=== PATIENT | male | born 1970 | race Two or more races ===

== ENCOUNTER 2023-05-04 21:21 | Emergency (ER) | payer MEDICAID ==
[~2023-05-04] VITALS: Ht 190.5 cm; Wt 86.2 kg
[2023-05-04 23:07] LABS: *BILIRUBIN,URIN NEGATIVE (NEGATIVE); *CLARITY,URINE CLEAR (CLEAR); *COLOR,URINE YELLOW (YELLOW); *KETONES,URINE 1+ (NEGATIVE); *PROTEIN,URINE 2+ (NEGATIVE); LEUKOCYTE ESTERASE ,URINE NEGATIVE (NEGATIVE); NITRITE, URINE NEGATIVE (NEGATIVE)
[2023-05-04 23:13] LABS: UGLUCOSE 3+ (NEGATIVE)
[2023-05-04 23:14] LABS: *BLOOD, URINE NEGATIVE (NEGATIVE)
[2023-05-04 23:17] LABS: BACTERIA,URINE NONE SEEN /HPF (NONE SEEN); RBC,URINE 0-3 /HPF (0-3); SQUAMOUS EPITHELIAL CELL,UR FEW /HPF (NONE SEEN); WBC,URINE 0-3 /HPF (0-3)
[2023-05-04 23:18] LABS: *AMPHETAMINE, URINE NEGATIVE (NEGATIVE); *BARBITURATE, URINE NEGATIVE (NEGATIVE); *BENZODIAZEPINE, URINE NEGATIVE (NEGATIVE); *CANNABINOID, URINE POSITIVE (NEGATIVE); *COCCAINE, URINE POSITIVE (NEGATIVE); *OPIATE, URINE NEGATIVE (NEGATIVE); *PHENCYCLIDINE SCREEN,URINE NEGATIVE (NEGATIVE)
[2023-05-04 23:19] LABS: BASOPHILS % (AUTO) 0.4 % (0.0-2.0); EOSINOPHILS # (AUTO) 0.2 K/uL (0.0-0.7); EOSINOPHILS % (AUTO) 2.5 % (0.0-7.0); HEMATOCRIT 44.1 % (36.7-47.1); LYMPHOCYTES # (AUTO) 2.5 K/uL (0.8-4.8); LYMPHOCYTES % (AUTO) 33.1 % (20.5-51.5); MEAN CORPUSCULAR HEMOGLOBIN 33.8 uug (23.8-33.4); MEAN CORPUSCULAR HGB CONC 36 g/dL (32.5-36.3); MEAN CORPUSCULAR VOLUME 93.3 fL (73.0-96.2); MONOCYTES # (AUTO) 0.8 K/uL (0.1-1.30); MONOCYTES % (AUTO) 10.4 % (0.0-11.0); NEUTROPHILS # (AUTO) 4.1 K/uL (1.8-8.9); NEUTROPHILS % (AUTO) 53.6 % (38.5-71.5); PLATELET COUNT (AUTO) 305 K/uL (152-348); RED BLOOD CELL COUNT(AUTO) 4.73 MIL/uL (4.06-5.63); RED CELL DISTRIBUTION WIDTH 12.5 % (12.1-16.2); WHITE BLOOD COUNT (AUTO) 7.6 K/uL (3.6-10.2)
[2023-05-04 23:29] LABS: DIFFERENTIAL COMMENT 1
[2023-05-04 23:29] LABS: FENTANYL, URINE NEGATIVE (NEGATIVE)
[2023-05-04 23:41] LABS: CALCIUM 10.4 mg/dL (8.5-10.1); CARBON DIOXIDE 28 mmol/L (21-32); CHLORIDE 96 mmol/L (98-107); CREATININE 0.9 mg/dL (0.6-1.3); GLUCOSE 239 mg/dL (74-106); SODIUM SERUM 135 mmol/L (136-145); UREA NITROGEN, BLOOD 9 mg/dL (7-18)
[2023-05-04 23:42] LABS: ETHANOL < 3 MG/DL (0-10)
[2023-05-04 23:57] LABS: ALANINE AMINOTRANSFERASE 30 U/L (16-63); ALKALINE PHOSPHATASE 105 U/L (50-136); ASPARTATE AMINOTRANSFERASE 14 U/L (15-37); BILIRUBIN,TOTAL 1.1 mg/dL (0.2-1.0); NT-PRO BNP 23 pg/mL (0-125); TOTAL PROTEIN, SERUM 9.3 g/dL (6.4-8.2)
[2023-05-04 23:59] LABS: ACETAMINOPHEN < 2.0 ug/mL (10-30)
[2023-05-05] MEDS ORDERED: KETOROLAC TROMETHAMINE 30 MG INJ ONE (01:07)
[2023-05-05] MEDS ORDERED: CYCLOBENZAPRINE HCL 10 MG TABLET ONE (01:07)
[2023-05-05] MEDS ORDERED: POTASSIUM CHLORIDE 20 MEQ TAB.PRT.SR ONE (01:07)
[2023-05-05] MEDS: POTASSIUM CHLORIDE 20 MEQ TAB.PRT.SR PO ONE (01:12)
[2023-05-05] MEDS: KETOROLAC TROMETHAMINE 30 MG INJ IM ONE (01:12)
[2023-05-05] MEDS: CYCLOBENZAPRINE HCL 10 MG TABLET PO ONE (01:12)
[2023-05-05 01:14] VITALS: BP 140/98; TEMP 98.6; O2SAT 100
== END 2023-05-05 01:15 | disposition home or self-care (01) ==
LOC: ER 21:25
DX: F14.10 Cocaine abuse, uncomplicated (principal); R73.9 Hyperglycemia, unspecified; M54.9 Dorsalgia, unspecified; Z20.822 Contact with and (suspected) exposure to COVID-19
CPT/HCPCS: 80053; 81001; 83880; 85025; 87426; 84484; 36415; 99283; 80299; 80320; 80307; 96372; J1885; A4606; A4663; G0480